=== PATIENT | female | born 2000 | race Caucasian/White ===

== ENCOUNTER 2021-12-08 05:46 | Emergency (ER) | payer OTHER ==
[~2021-12-08] VITALS: Ht 162.6 cm; Wt 68.0 kg
[2021-12-08] MEDS ORDERED: KETOROLAC TROMETHAMINE 30 MG/ML VIAL IM STA (05:59)
[2021-12-08] MEDS ORDERED: ONDANSETRON HCL 4 MG ORAL DISINTEGRATING TAB PO ONE (06:00)
[2021-12-08] MEDS ORDERED: ONDANSETRON ODT4 MG PO (06:00)
[2021-12-08] MEDS ORDERED: ACETAMINOPHEN 325 MG TAB PO ONE (06:00)
[2021-12-08 07:16] LABS: CLARITY,URINE CLEAR (CLEAR); COLOR,URINE YELLOW (YELLOW); LEUKOCYTE ESTERASE ,URINE NEGATIVE (NEGATIVE)
[2021-12-08 07:17] LABS: KETONES,URINE 2+ (NEGATIVE); NITRITE,URINE NEGATIVE (NEGATIVE); PROTEIN,URINE DIPSTICK NEGATIVE (NEGATIVE); URINE UROBILINOGEN 0.2 mg/dL (0.2 - 1)
[2021-12-08 07:34] LABS: BACTERIA,URINE RARE /HPF; EPITHELIAL CELLS,URINE FEW /LPF; RBC,URINE 0-5 /HPF (0-5); WBC,URINE (MAN) 0-5 /HPF (0-5)
== END 2021-12-08 07:51 | disposition home or self-care (01) ==
LOC: ER 05:51
DX: R50.9 Fever, unspecified (principal); U07.1 COVID-19; R11.2 Nausea with vomiting, unspecified; M79.10 Myalgia, unspecified site
CPT/HCPCS: 81001; 81025; 83518; 87070; 99283; J1885; Q0162; U0002